=== PATIENT | female | born 1945 | race Caucasian/White ===

== ENCOUNTER 2021-10-01 18:23 | Inpatient (IN) ==
[2021-10-02] MEDS ORDERED: Perflutren Lipid Microsphere 1.3 ML in 0.9 % Sodium Chloride 8.7 ML IVP PRN (03:38)
[2021-10-02 03:40] LABS: Basophils # 0.1 K/mcL (0.0-0.2); Basophils % 0.8 %; Eosinophils # 0.1 K/mcL (0.0-0.6); Eosinophils % 1.1 %; Hematocrit 38.7 % (35.3-44.9); Hemoglobin 12.6 g/dL (11.5-15.4); Immature Granulocytes % 0.3 % (0-4); Lymphocytes # 4.8 K/mcL (0.6-4.6); Lymphocytes % 42.1 %; Mean Corpuscular HGB Conc 32.6 g/dL (31.6-35.5); Mean Corpuscular Hemoglobin 28.3 pg (28.0-33.3); Mean Platelet Volume 8.6 fL (9.4-12.4); Monocytes # 0.8 K/mcL (0.0-1.3); Neutrophils # 5.5 K/mcL (1.6-8.9); Platelet Count 307 K/mcL (140-400); Red Blood Count 4.45 M/mcL (3.82-4.97); Red Cell Distribution Width 15.2 % (11.5-14.5); Segmented Neutrophils % 48.7 %; White Blood Count 11.3 K/mcL (4.3-11.1)
[2021-10-02] MEDS ORDERED: Naloxone 0.4 MG/ML INJ IVP PRN (03:46)
[2021-10-02] MEDS ORDERED: Acetaminophen 325 MG TABLET PO PRN (03:46)
[2021-10-02] MEDS ORDERED: Ondansetron 4 MG/2 ML VIAL IVP PRN (03:46)
[2021-10-02] MEDS ORDERED: D5% in Water 1,000 ML IVC PRN (03:47)
[2021-10-02] MEDS ORDERED: Dextrose Gel 15 GM/37.5 ML TUBE PO PRN ×2 (03:47)
[2021-10-02] MEDS ORDERED: *HR* Dextrose 50 % in Water (Syg) 50 ML SYRINGE IVP PRN (03:47)
[2021-10-02] MEDS: Temazepam 15 MG CAPSULE PO SCH ×2 (03:51→20:12)
[2021-10-02] MEDS ORDERED: Nitroglycerin 0.4 MG TAB.SUBL SL PRN (04:03)
[2021-10-02 04:06] LABS: Alanine Aminotransferase 15 Units/L (7-52); Albumin 4.1 g/dL (3.5-5.7); Albumin/Globulin Ratio 1.2 (1.1-2.2); Alkaline Phosphatase 43 Units/L (34-104); Aspartate Amino Transferase 16 Units/L (13-39); BUN/Creatinine Ratio 12 (6-26); Bilirubin,Total 0.5 mg/dL (0.3-1.0); Blood Urea Nitrogen 15 mg/dL (8-23); Calcium 9.8 mg/dL (8.6-10.3); Carbon Dioxide 26 mEq/L (23-29); Chloride 99 mEq/L (98-107); Chol/HDL Ratio 4.2 (0-4.9); Cholesterol 181 mg/dL (< 200); Globulin 3.3 g/dL (2.4-3.5); Glucose 95 mg/dL (70-105); HDL Cholesterol 43 mg/dL (40-59); LDL Cholesterol,Calculated 102 mg/dL (< 100); Magnesium 1.6 mg/dL (1.6-2.6); Osmolality,Calculated 283 (280-300); Potassium 3.7 mEq/L (3.5-5.1); Sodium 136 mEq/L (136-145); Total Protein 7.4 g/dL (6.4-8.9); Triglycerides 179 mg/dL (< 150); Troponin I < 0.03 ng/mL (< 0.04); eGFR For African Americans 50 (> 60); eGFR For Non-African Americans 41 (> 60)
[2021-10-02 04:18] LABS: Thyroid Stimulating Hormone 2.621 mcIU/mL (0.340-5.600)
[2021-10-02 04:29] LABS: Prothrombin Time 11.3 Seconds (9.4-12.1)
[2021-10-02] MEDS: *HR* Heparin 5,000 UNIT/ML VIAL SQ SCH ×3 (05:10→20:11)
[2021-10-02] MEDS: Insulin LISPRO 300 UNITS/3 ML VIAL SUBQ SCH ×3 (06:13→17:12)
[2021-10-02 06:50] LABS: Estimated Average Glucose 140 mg/dl; Hemoglobin A1C 6.5 %
[2021-10-02] MEDS ORDERED: amLODIPine 5 MG TABLET PO SCH (09:00)
[2021-10-02] MEDS: hydroCHLOROthiazide 25 MG TABLET PO SCH (11:50)
[2021-10-02] MEDS ORDERED: Metoprolol XL (24 HR) Succ 25 MG TAB.ER.24H PO SCH ×2 (12:30→13:42)
[2021-10-02] MEDS: Aspirin 81 MG TAB.CHEW PO SCH (14:01)
[2021-10-02] MEDS ORDERED: Morphine Sulfate 2 MG/ML SYRINGE IVP ONE (14:23)
[2021-10-02] MEDS ORDERED: Morphine Sulfate 2 MG/ML SYRINGE IVP PRN (20:35)
[2021-10-03 01:29] LABS: Hematocrit 36.4 % (35.3-44.9); Hemoglobin 11.8 g/dL (11.5-15.4); Mean Corpuscular HGB Conc 32.4 g/dL (31.6-35.5); Mean Corpuscular Hemoglobin 28.4 pg (28.0-33.3); Mean Corpuscular Volume 87.7 fL (83.0-100.0); Mean Platelet Volume 8.8 fL (9.4-12.4); Platelet Count 302 K/mcL (140-400); Red Blood Count 4.15 M/mcL (3.82-4.97); Red Cell Distribution Width 15.5 % (11.5-14.5); White Blood Count 10.2 K/mcL (4.3-11.1)
[2021-10-03] MEDS: Insulin LISPRO 300 UNITS/3 ML VIAL SUBQ SCH ×3 (01:34→12:25)
[2021-10-03] MEDS: *HR* Heparin 5,000 UNIT/ML VIAL SQ SCH (01:34)
[2021-10-03 01:48] LABS: Calcium 9.4 mg/dL (8.6-10.3); Potassium 3.8 mEq/L (3.5-5.1)
[2021-10-03] MEDS ORDERED: Regadenoson 0.4 MG/5 ML SYRINGE IVP ONE (06:32)
[2021-10-03] MEDS ORDERED: Metoprolol XL (24 HR) Succ 25 MG TAB.ER.24H PO SCH (09:00)
[2021-10-03] MEDS: Aspirin 81 MG TAB.CHEW PO SCH (09:49)
[2021-10-03] MEDS: hydroCHLOROthiazide 25 MG TABLET PO SCH (09:49)
[2021-10-03 10:24] VITALS: BP 98/55; PULSE 78; TEMP 98; O2SAT 94
== END 2021-10-03 14:11 | disposition home or self-care (01) | DRG 313 ==
LOC: 3BNU
PROVIDERS: ADMIT Internal Medicine; ATTEND Internal Medicine

== ENCOUNTER 2021-12-24 03:26 | Inpatient (IN) ==
[2021-12-24] MEDS ORDERED: Morphine Sulfate 2 MG/ML SYRINGE IVP ONE (04:12)
[2021-12-24 04:40] LABS: Basophils # 0.1 K/mcL (0.0-0.2); Basophils % 0.6 %; Eosinophils # 0.1 K/mcL (0.0-0.6); Eosinophils % 0.7 %; Hematocrit 36.6 % (35.3-44.9); Hemoglobin 12.1 g/dL (11.5-15.4); Immature Granulocytes % 0.3 % (0-4); Lymphocytes # 3.6 K/mcL (0.6-4.6); Lymphocytes % 23.7 %; Mean Corpuscular HGB Conc 33.1 g/dL (31.6-35.5); Mean Corpuscular Hemoglobin 29.2 pg (28.0-33.3); Mean Corpuscular Volume 88.4 fL (83.0-100.0); Mean Platelet Volume 8.7 fL (9.4-12.4); Monocytes # 1.1 K/mcL (0.0-1.3); Monocytes % 7.5 %; Neutrophils # 10.2 K/mcL (1.6-8.9); Platelet Count 319 K/mcL (140-400); Red Blood Count 4.14 M/mcL (3.82-4.97); Red Cell Distribution Width 12.8 % (11.5-14.5); Segmented Neutrophils % 67.2 %; White Blood Count 15.1 K/mcL (4.3-11.1)
[2021-12-24 05:36] LABS: Alanine Aminotransferase 10 Units/L (7-52); Albumin/Globulin Ratio 1.1 (1.1-2.2); Alkaline Phosphatase 49 Units/L (34-104); Aspartate Amino Transferase 23 Units/L (13-39); BUN/Creatinine Ratio 13 (6-26); Bilirubin,Total 0.4 mg/dL (0.3-1.0); Blood Urea Nitrogen 19 mg/dL (8-23); Calcium 9.7 mg/dL (8.6-10.3); Carbon Dioxide 26 mEq/L (23-29); Chloride 94 mEq/L (98-107); Globulin 3.7 g/dL (2.4-3.5); Glucose 198 mg/dL (70-105); Magnesium 1.6 mg/dL (1.6-2.6); Osmolality,Calculated 278 (280-300); Potassium 4.2 mEq/L (3.5-5.1); Sodium 130 mEq/L (136-145); Total Protein 7.7 g/dL (6.4-8.9); Troponin I < 0.03 ng/mL (< 0.04); eGFR For African Americans 42 (> 60); eGFR For Non-African Americans 35 (> 60)
[2021-12-24] MEDS ORDERED: Morphine Sulfate 2 MG/ML SYRINGE IVP STA (06:03)
[2021-12-24] MEDS ORDERED: Ondansetron 4 MG/2 ML VIAL IVP ONE (06:35)
[2021-12-24 08:13] LABS: INR 1.1; Prothrombin Time 12.6 Seconds (9.4-12.1)
[2021-12-24 08:15] LABS: Activated Partial Thrombo Time 34.3 Seconds (26.0-36.0)
[2021-12-24] MEDS ORDERED: Naloxone 0.4 MG/ML INJ IVP PRN (08:35)
[2021-12-24] MEDS ORDERED: Ondansetron 4 MG/2 ML VIAL IVP PRN (08:42)
[2021-12-24] MEDS ORDERED: Acetaminophen 325 MG TABLET PO PRN (08:42)
[2021-12-24] MEDS ORDERED: Dextrose 4 GM Chewable Tablets PO PRN ×2 (08:46)
[2021-12-24] MEDS ORDERED: D5% in Water 1,000 ML IVC PRN (08:46)
[2021-12-24] MEDS ORDERED: *HR* Dextrose 50 % in Water (Syg) 50 ML SYRINGE IVP PRN (08:46)
[2021-12-24] MEDS ORDERED: Temazepam 15 MG CAPSULE PO PRN (08:47)
[2021-12-24] MEDS ORDERED: *HR* HYDROmorphone 4 MG TABLET PO PRN (09:12)
[2021-12-24] MEDS: Insulin LISPRO 300 UNITS/3 ML VIAL SUBQ SCH ×2 (12:00→19:05)
[2021-12-24] MEDS: Isosorbide MONOnitrate (24 HR) 30 MG TAB.ER.24H PO SCH (12:00)
[2021-12-24] MEDS: Aspirin Enteric Coated 81 MG Tablet PO SCH (12:00)
[2021-12-24] MEDS: amLODIPine 5 MG TABLET PO SCH (12:00)
[2021-12-24] MEDS ORDERED: 0.9 % Sodium Chloride 1,000 ML IVC SCH (12:15)
[2021-12-24 16:58] LABS: Calcium 9.1 mg/dL (8.6-10.3); Potassium 3.8 mEq/L (3.5-5.1)
[2021-12-24 20:17] LABS: Calcium 8.8 mg/dL (8.6-10.3); Potassium 3.9 mEq/L (3.5-5.1)
[2021-12-24] MEDS ORDERED: Insulin LISPRO 300 UNITS/3 ML VIAL SUBQ SCH (21:00)
[2021-12-25 06:28] LABS: Basophils # 0.1 K/mcL (0.0-0.2); Basophils % 0.6 %; Eosinophils # 0.1 K/mcL (0.0-0.6); Eosinophils % 1.4 %; Hematocrit 34.8 % (35.3-44.9); Hemoglobin 11.6 g/dL (11.5-15.4); Immature Granulocytes % 0.2 % (0-4); Lymphocytes # 3.3 K/mcL (0.6-4.6); Lymphocytes % 35.4 %; Mean Corpuscular HGB Conc 33.3 g/dL (31.6-35.5); Mean Corpuscular Hemoglobin 29.7 pg (28.0-33.3); Mean Platelet Volume 8.4 fL (9.4-12.4); Monocytes # 0.9 K/mcL (0.0-1.3); Monocytes % 9.3 %; Platelet Count 273 K/mcL (140-400); Red Blood Count 3.91 M/mcL (3.82-4.97); Red Cell Distribution Width 12.6 % (11.5-14.5); Segmented Neutrophils % 53.1 %; White Blood Count 9.4 K/mcL (4.3-11.1)
[2021-12-25 06:44] LABS: Calcium 9.3 mg/dL (8.6-10.3); Magnesium 1.6 mg/dL (1.6-2.6)
[2021-12-25] MEDS ORDERED: *HR* FentaNYL (PF) 100 MCG/2 ML VIAL ONE (07:23)
[2021-12-25] MEDS ORDERED: *HR* Midazolam HCl 2 MG/2 ML VIAL ONE (07:23)
[2021-12-25] MEDS ORDERED: *HR* Propofol 200 MG/20 ML VIAL IVP ONE (07:24)
[2021-12-25] MEDS ORDERED: Lidocaine -MPF 2% 2 ML VIAL ONE ×2 (07:24→07:35)
[2021-12-25] MEDS ORDERED: *HR* Succinylcholine 200 MG/10 ML VIAL IVP ONE (07:24)
[2021-12-25] MEDS ORDERED: Ondansetron 4 MG/2 ML VIAL ONE (07:24)
[2021-12-25] MEDS ORDERED: ROPIVACAINE/PF/NS 0.25% 1 EACH SYRINGE INTRAART ONE (07:34)
[2021-12-25] MEDS ORDERED: Ropivacaine/PF 0.5% 30 ML VIAL ONE (07:34)
[2021-12-25] MEDS ORDERED: Clindamycin 900 MG/50 ML 900 MG/50 ML IV.SOLN IVPB ONE (07:40)
[2021-12-25] MEDS ORDERED: Ringers Solution, Lactated 1,000 ML IVC SCH (07:45)
[2021-12-25 07:51] LABS: Estimated Average Glucose 148 mg/dl; Hemoglobin A1C 6.8 %
[2021-12-25] MEDS ORDERED: Promethazine 6.25 MG in Water for inj. (sterile) 20 ML IVPB PRN (07:56)
[2021-12-25] MEDS ORDERED: ceFAZolin 2,000 MG in 0.9 % Sodium Chloride 100 ML IVPB SCH (08:00)
[2021-12-25] MEDS ORDERED: Bupivacaine/EPI 1:200k 0.25% 50 ML VIAL ONE (08:10)
[2021-12-25] MEDS ORDERED: Acetaminophen IV 1,000 MG/100 ML BAG IVPB ONE (08:48)
[2021-12-25] MEDS ORDERED: EPHEDrine 50 MG/ML VIAL ONE (08:55)
[2021-12-25] MEDS ORDERED: *HR* HYDROmorphone 4 MG TABLET PO PRN (11:48)
[2021-12-25] MEDS ORDERED: D5% in Water 1,000 ML IVC PRN (11:48)
[2021-12-25] MEDS ORDERED: Dextrose 4 GM Chewable Tablets PO PRN ×2 (11:48)
[2021-12-25] MEDS ORDERED: Naloxone 0.4 MG/ML INJ IVP PRN (11:48)
[2021-12-25] MEDS ORDERED: *HR* Dextrose 50 % in Water (Syg) 50 ML SYRINGE IVP PRN (11:48)
[2021-12-25] MEDS ORDERED: Ondansetron 4 MG/2 ML VIAL IVP PRN (11:48)
[2021-12-25] MEDS ORDERED: Clindamycin 600 MG/50 ML 600 MG/50 ML IV.SOLN IVPB SCH ×2 (16:00)
[2021-12-25] MEDS: Insulin LISPRO 300 UNITS/3 ML VIAL SUBQ SCH ×2 (16:31→23:15)
[2021-12-25] MEDS: Temazepam 15 MG CAPSULE PO PRN (23:15)
[2021-12-26 04:49] LABS: Basophils % 0.1 %; Hematocrit 31.2 % (35.3-44.9); Hemoglobin 10.5 g/dL (11.5-15.4); Immature Granulocytes % 0.4 % (0-4); Lymphocytes # 2.4 K/mcL (0.6-4.6); Lymphocytes % 16.2 %; Mean Corpuscular HGB Conc 33.7 g/dL (31.6-35.5); Mean Corpuscular Hemoglobin 29.8 pg (28.0-33.3); Mean Corpuscular Volume 88.6 fL (83.0-100.0); Mean Platelet Volume 8.8 fL (9.4-12.4); Monocytes # 0.8 K/mcL (0.0-1.3); Monocytes % 5.4 %; Neutrophils # 11.3 K/mcL (1.6-8.9); Platelet Count 257 K/mcL (140-400); Red Blood Count 3.52 M/mcL (3.82-4.97); Red Cell Distribution Width 12.5 % (11.5-14.5); Segmented Neutrophils % 77.9 %
[2021-12-26 04:50] LABS: White Blood Count 14.5 K/mcL (4.3-11.1)
[2021-12-26 05:10] LABS: Albumin 3.6 g/dL (3.5-5.7); Albumin/Globulin Ratio 1.1 (1.1-2.2); Bilirubin,Total 0.3 mg/dL (0.3-1.0); Calcium 9.1 mg/dL (8.6-10.3); Globulin 3.2 g/dL (2.4-3.5); Potassium 4.2 mEq/L (3.5-5.1); Total Protein 6.8 g/dL (6.4-8.9)
[2021-12-26] MEDS: amLODIPine 5 MG TABLET PO SCH (08:14)
[2021-12-26] MEDS: Insulin LISPRO 300 UNITS/3 ML VIAL SUBQ SCH ×4 (08:14→19:42)
[2021-12-26] MEDS: Isosorbide MONOnitrate (24 HR) 30 MG TAB.ER.24H PO SCH (08:14)
[2021-12-26] MEDS ORDERED: Aspirin Enteric Coated 81 MG Tablet PO SCH (09:00)
[2021-12-26] MEDS: Aspirin Enteric Coated 81 MG Tablet PO SCH (19:39)
[2021-12-26] MEDS: Temazepam 15 MG CAPSULE PO PRN (23:19)
[2021-12-27] MEDS: Ringers Solution, Lactated 1,000 ML IVC SCH ×2 (07:19→13:51)
[2021-12-27] MEDS: Insulin LISPRO 300 UNITS/3 ML VIAL SUBQ SCH ×5 (07:27→19:56)
[2021-12-27] MEDS: Isosorbide MONOnitrate (24 HR) 30 MG TAB.ER.24H PO SCH ×2 (07:51→08:20)
[2021-12-27] MEDS: amLODIPine 5 MG TABLET PO SCH ×2 (07:51→08:20)
[2021-12-27] MEDS: Aspirin Enteric Coated 81 MG Tablet PO SCH ×2 (07:52→20:14)
[2021-12-27 08:37] LABS: Basophils # 0.1 K/mcL (0.0-0.2); Basophils % 0.6 %; Eosinophils # 0.1 K/mcL (0.0-0.6); Hemoglobin 11.6 g/dL (11.5-15.4); Immature Granulocytes % 0.2 % (0-4); Lymphocytes % 39.8 %; Mean Corpuscular HGB Conc 32.2 g/dL (31.6-35.5); Mean Corpuscular Hemoglobin 28.8 pg (28.0-33.3); Mean Corpuscular Volume 89.3 fL (83.0-100.0); Mean Platelet Volume 8.5 fL (9.4-12.4); Monocytes % 8.1 %; Neutrophils # 6.3 K/mcL (1.6-8.9); Platelet Count 316 K/mcL (140-400); Red Blood Count 4.03 M/mcL (3.82-4.97); Segmented Neutrophils % 50.3 %; White Blood Count 12.5 K/mcL (4.3-11.1)
[2021-12-27 08:57] LABS: Albumin 3.8 g/dL (3.5-5.7); Albumin/Globulin Ratio 1.1 (1.1-2.2); Bilirubin,Total 0.5 mg/dL (0.3-1.0); Calcium 9.4 mg/dL (8.6-10.3); Globulin 3.4 g/dL (2.4-3.5); Potassium 4.2 mEq/L (3.5-5.1); Total Protein 7.2 g/dL (6.4-8.9)
[2021-12-27] MEDS: Acetaminophen 325 MG TABLET PO PRN (11:05)
[2021-12-27] MEDS ORDERED: Ringers Solution, Lactated 500 ML IVC ONE (13:31)
[2021-12-27 15:42] LABS: Bilirubin,Urine Negative (Negative); Blood,Urine Negative (Negative); Clarity,Urine Clear (Clear); Color,Urine Light-Yellow (Yellow); Glucose,Urine (UA) Normal (Normal); Hyaline Casts,Urine Few per lpf (None Seen); Ketones,Urine Negative (Negative); Leukocyte Esterase,Urine Small (Negative); Mucus,Urine Few per lpf (None-Few); Nitrite,Urine Negative (Negative); PH,Urine 6.5 pH Units (5.0-8.0); Protein,Urine Negative (Neg-Trace); RBC,Urine 0-3 per hpf (0-3); Specific Gravity,Urine 1.015 (1.010-1.025); Squamous Epithelial Cell,Urine Few per hpf (None-Few); Transitional Epi Cells,Urine Few per hpf (None-Few); Urobilinogen,Urine Normal (Normal)
[2021-12-27 16:42] LABS: Influenza A PCR Negative (Negative); Influenza B PCR Negative (Negative); Resp. Syncytial Virus PCR Negative (Negative)
[2021-12-27] MEDS: Nitrofurantoin (BID) 100 MG CAPSULE PO SCH (17:05)
[2021-12-27 17:13] LABS: SARS-CoV-2 by PCR (In House) Negative (Negative)
[2021-12-27 17:27] LABS: Calcium 8.9 mg/dL (8.6-10.3); Potassium 4.3 mEq/L (3.5-5.1)
[2021-12-28 01:06] LABS: Basophils # 0.1 K/mcL (0.0-0.2); Basophils % 0.9 %; Eosinophils # 0.2 K/mcL (0.0-0.6); Eosinophils % 1.8 %; Hematocrit 34.2 % (35.3-44.9); Hemoglobin 11.1 g/dL (11.5-15.4); Immature Granulocytes % 0.3 % (0-4); Lymphocytes # 3.9 K/mcL (0.6-4.6); Lymphocytes % 35.8 %; Mean Corpuscular HGB Conc 32.5 g/dL (31.6-35.5); Mean Corpuscular Hemoglobin 29.8 pg (28.0-33.3); Mean Corpuscular Volume 91.7 fL (83.0-100.0); Mean Platelet Volume 8.3 fL (9.4-12.4); Monocytes # 0.9 K/mcL (0.0-1.3); Monocytes % 8.4 %; Neutrophils # 5.8 K/mcL (1.6-8.9); Platelet Count 283 K/mcL (140-400); Red Blood Count 3.73 M/mcL (3.82-4.97); Red Cell Distribution Width 12.9 % (11.5-14.5); Segmented Neutrophils % 52.8 %
[2021-12-28 01:26] LABS: Calcium 9.4 mg/dL (8.6-10.3); Potassium 4.3 mEq/L (3.5-5.1)
[2021-12-28] MEDS: amLODIPine 5 MG TABLET PO SCH (07:50)
[2021-12-28] MEDS: Nitrofurantoin (BID) 100 MG CAPSULE PO SCH (07:50)
[2021-12-28] MEDS: Insulin LISPRO 300 UNITS/3 ML VIAL SUBQ SCH ×4 (07:50→20:41)
[2021-12-28] MEDS: Isosorbide MONOnitrate (24 HR) 30 MG TAB.ER.24H PO SCH (07:50)
[2021-12-28] MEDS ORDERED: Ringers Solution, Lactated 1,000 ML IVC SCH (08:12)
[2021-12-28] MEDS: *HR* HYDROmorphone 2 MG TABLET PO PRN (11:07)
[2021-12-28] MEDS ORDERED: *HR* HYDROmorphone 2 MG TABLET PO ONE (18:37)
[2021-12-28] MEDS: Aspirin Enteric Coated 81 MG Tablet PO SCH (20:43)
[2021-12-28] MEDS: Temazepam 15 MG CAPSULE PO PRN (20:46)
[2021-12-28] MEDS ORDERED: Sulfamethoxazole/Trimeth DS 1 EACH TABLET PO ONE (21:00)
[2021-12-29 05:36] LABS: Calcium 8.9 mg/dL (8.6-10.3); Potassium 4.1 mEq/L (3.5-5.1)
[2021-12-29] MEDS: *HR* HYDROmorphone 2 MG TABLET PO PRN ×3 (05:43→18:41)
[2021-12-29] MEDS: Insulin LISPRO 300 UNITS/3 ML VIAL SUBQ SCH ×4 (07:38→21:31)
[2021-12-29 08:09] LABS: Basophils # 0.1 K/mcL (0.0-0.2); Basophils % 0.7 %; Eosinophils # 0.2 K/mcL (0.0-0.6); Eosinophils % 1.6 %; Hematocrit 33.3 % (35.3-44.9); Immature Granulocytes % 0.3 % (0-4); Lymphocytes % 28.3 %; Mean Corpuscular Hemoglobin 29.3 pg (28.0-33.3); Mean Corpuscular Volume 88.8 fL (83.0-100.0); Mean Platelet Volume 8.3 fL (9.4-12.4); Monocytes % 9.4 %; Neutrophils # 6.4 K/mcL (1.6-8.9); Platelet Count 288 K/mcL (140-400); Red Blood Count 3.75 M/mcL (3.82-4.97); Red Cell Distribution Width 12.7 % (11.5-14.5); Segmented Neutrophils % 59.7 %; White Blood Count 10.7 K/mcL (4.3-11.1)
[2021-12-29] MEDS: amLODIPine 5 MG TABLET PO SCH (08:32)
[2021-12-29] MEDS: Isosorbide MONOnitrate (24 HR) 30 MG TAB.ER.24H PO SCH (08:32)
[2021-12-29] MEDS ORDERED: Sulfamethoxazole/Trimeth SS 1 TAB PO SCH (09:00)
[2021-12-29] MEDS: Sennosides 8.6 MG TABLET PO SCH (13:28)
[2021-12-29] MEDS: Aspirin Enteric Coated 81 MG Tablet PO SCH (21:28)
[2021-12-29] MEDS: Sulfamethoxazole/Trimeth DS 1 EACH TABLET PO SCH (21:36)
[2021-12-30 03:02] LABS: Basophils # 0.1 K/mcL (0.0-0.2); Basophils % 0.6 %; Eosinophils # 0.2 K/mcL (0.0-0.6); Eosinophils % 1.8 %; Hematocrit 33.3 % (35.3-44.9); Hemoglobin 10.9 g/dL (11.5-15.4); Immature Granulocytes % 0.4 % (0-4); Lymphocytes # 3.9 K/mcL (0.6-4.6); Lymphocytes % 32.7 %; Mean Corpuscular HGB Conc 32.7 g/dL (31.6-35.5); Mean Corpuscular Hemoglobin 29.5 pg (28.0-33.3); Mean Platelet Volume 8.3 fL (9.4-12.4); Monocytes % 8.7 %; Neutrophils # 6.6 K/mcL (1.6-8.9); Platelet Count 342 K/mcL (140-400); Red Cell Distribution Width 12.7 % (11.5-14.5); Segmented Neutrophils % 55.8 %; White Blood Count 11.8 K/mcL (4.3-11.1)
[2021-12-30 03:17] LABS: Calcium 9.3 mg/dL (8.6-10.3)
[2021-12-30] MEDS: *HR* HYDROmorphone 2 MG TABLET PO PRN ×3 (03:36→19:29)
[2021-12-30] MEDS: amLODIPine 5 MG TABLET PO SCH (08:45)
[2021-12-30] MEDS: Isosorbide MONOnitrate (24 HR) 30 MG TAB.ER.24H PO SCH (08:45)
[2021-12-30] MEDS: Sennosides 8.6 MG TABLET PO SCH (08:45)
[2021-12-30] MEDS: Insulin LISPRO 300 UNITS/3 ML VIAL SUBQ SCH ×4 (09:21→20:37)
[2021-12-30] MEDS: Sulfamethoxazole/Trimeth DS 1 EACH TABLET PO SCH ×2 (09:22→19:30)
[2021-12-30] MEDS: Acetaminophen 325 MG TABLET PO PRN (17:20)
[2021-12-30] MEDS: Aspirin Enteric Coated 81 MG Tablet PO SCH (19:29)
[2021-12-31] MEDS: *HR* HYDROmorphone 2 MG TABLET PO PRN ×5 (03:12→22:48)
[2021-12-31 05:11] LABS: Basophils # 0.1 K/mcL (0.0-0.2); Basophils % 0.6 %; Eosinophils # 0.2 K/mcL (0.0-0.6); Eosinophils % 1.8 %; Hematocrit 33.8 % (35.3-44.9); Hemoglobin 11.1 g/dL (11.5-15.4); Immature Granulocytes % 0.4 % (0-4); Lymphocytes # 3.5 K/mcL (0.6-4.6); Lymphocytes % 30.3 %; Mean Corpuscular HGB Conc 32.8 g/dL (31.6-35.5); Mean Corpuscular Hemoglobin 29.7 pg (28.0-33.3); Mean Corpuscular Volume 90.4 fL (83.0-100.0); Mean Platelet Volume 8.3 fL (9.4-12.4); Monocytes # 0.9 K/mcL (0.0-1.3); Monocytes % 8.2 %; Neutrophils # 6.7 K/mcL (1.6-8.9); Platelet Count 333 K/mcL (140-400); Red Blood Count 3.74 M/mcL (3.82-4.97); Red Cell Distribution Width 12.9 % (11.5-14.5); Segmented Neutrophils % 58.7 %; White Blood Count 11.4 K/mcL (4.3-11.1)
[2021-12-31 05:25] LABS: Calcium 9.1 mg/dL (8.6-10.3)
[2021-12-31] MEDS: Insulin LISPRO 300 UNITS/3 ML VIAL SUBQ SCH ×4 (07:20→19:48)
[2021-12-31] MEDS: Sulfamethoxazole/Trimeth DS 1 EACH TABLET PO SCH (08:25)
[2021-12-31] MEDS: amLODIPine 5 MG TABLET PO SCH (08:25)
[2021-12-31] MEDS: Isosorbide MONOnitrate (24 HR) 30 MG TAB.ER.24H PO SCH (08:25)
[2021-12-31] MEDS: 0.9 % Sodium Chloride 1,000 ML IVC SCH ×2 (10:29→22:49)
[2021-12-31] MEDS: Aspirin Enteric Coated 81 MG Tablet PO SCH (19:14)
[2021-12-31] MEDS: Sulfamethoxazole/Trimeth SS 1 TAB PO SCH (19:49)
[2022-01-01] MEDS: *HR* HYDROmorphone 2 MG TABLET PO PRN ×4 (03:09→19:17)
[2022-01-01 03:52] LABS: Basophils # 0.1 K/mcL (0.0-0.2); Basophils % 0.7 %; Eosinophils # 0.2 K/mcL (0.0-0.6); Eosinophils % 2.5 %; Hematocrit 32.2 % (35.3-44.9); Hemoglobin 10.5 g/dL (11.5-15.4); Immature Granulocytes % 0.5 % (0-4); Lymphocytes # 3.2 K/mcL (0.6-4.6); Lymphocytes % 32.8 %; Mean Corpuscular HGB Conc 32.6 g/dL (31.6-35.5); Mean Corpuscular Hemoglobin 29.7 pg (28.0-33.3); Mean Corpuscular Volume 91.2 fL (83.0-100.0); Mean Platelet Volume 8.4 fL (9.4-12.4); Monocytes # 0.8 K/mcL (0.0-1.3); Monocytes % 8.3 %; Neutrophils # 5.3 K/mcL (1.6-8.9); Platelet Count 321 K/mcL (140-400); Red Blood Count 3.53 M/mcL (3.82-4.97); Segmented Neutrophils % 55.2 %; White Blood Count 9.6 K/mcL (4.3-11.1)
[2022-01-01 04:17] LABS: Calcium 8.7 mg/dL (8.6-10.3); Potassium 4.1 mEq/L (3.5-5.1)
[2022-01-01] MEDS: Insulin LISPRO 300 UNITS/3 ML VIAL SUBQ SCH ×4 (08:01→20:15)
[2022-01-01] MEDS: Isosorbide MONOnitrate (24 HR) 30 MG TAB.ER.24H PO SCH (08:19)
[2022-01-01] MEDS: Sulfamethoxazole/Trimeth SS 1 TAB PO SCH ×2 (08:19→19:17)
[2022-01-01] MEDS: amLODIPine 5 MG TABLET PO SCH (08:19)
[2022-01-01] MEDS: Aspirin Enteric Coated 81 MG Tablet PO SCH (19:17)
[2022-01-02] MEDS: *HR* HYDROmorphone 2 MG TABLET PO PRN ×4 (02:30→22:33)
[2022-01-02] MEDS: Insulin LISPRO 300 UNITS/3 ML VIAL SUBQ SCH ×4 (07:52→20:05)
[2022-01-02] MEDS: Isosorbide MONOnitrate (24 HR) 30 MG TAB.ER.24H PO SCH (07:53)
[2022-01-02] MEDS: amLODIPine 5 MG TABLET PO SCH (07:53)
[2022-01-02] MEDS: *HR* Rivaroxaban 10 MG TABLET PO SCH (16:27)
[2022-01-02] MEDS: Aspirin Enteric Coated 81 MG Tablet PO SCH (20:22)
[2022-01-03] MEDS: Insulin LISPRO 300 UNITS/3 ML VIAL SUBQ SCH ×3 (07:27→16:51)
[2022-01-03] MEDS: Isosorbide MONOnitrate (24 HR) 30 MG TAB.ER.24H PO SCH (08:42)
[2022-01-03] MEDS: amLODIPine 5 MG TABLET PO SCH (08:42)
[2022-01-03] MEDS ORDERED: Isovue-370 500 ML BOTTLE IVP ONE (09:41)
[2022-01-03] MEDS ORDERED: cefTRIAXone 2,000 MG in 0.9 % Sodium Chloride Mini Bag 100 ML IVPB SCH (10:00)
[2022-01-03 15:42] VITALS: O2SAT 93
[2022-01-03] MEDS: *HR* Rivaroxaban 10 MG TABLET PO SCH (15:48)
[2022-01-03] MEDS ORDERED: MetroNIDAZOLE 500 MG/100 ML 500 MG/100 ML BAG IVPB SCH (16:00)
[2022-01-03 17:28] LABS: Influenza A PCR Negative (Negative); Influenza B PCR Negative (Negative); Resp. Syncytial Virus PCR Negative (Negative)
[2022-01-03 17:37] LABS: SARS-CoV-2 by PCR (In House) Negative (Negative)
[2022-01-03 19:15] VITALS: BP 104/70; PULSE 100; TEMP 98.5
== END 2022-01-03 20:00 | DRG 493 ==
LOC: EMEROOARM 03:26 → 4WAOSI 03:26 → SUATTDRO 12:25
PROVIDERS: ADMIT Pharmacist; ATTEND Internal Medicine

== ENCOUNTER 2022-04-06 06:28 | Inpatient (IN) ==
[2022-04-06] MEDS ORDERED: *HR* FentaNYL (PF) 100 MCG/2 ML VIAL ONE (06:49)
[2022-04-06] MEDS ORDERED: *HR* Propofol 200 MG/20 ML VIAL IVP ONE ×2 (06:49→10:41)
[2022-04-06] MEDS ORDERED: *HR* Midazolam HCl 2 MG/2 ML VIAL ONE (06:49)
[2022-04-06] MEDS ORDERED: Ondansetron 4 MG/2 ML VIAL ONE (06:53)
[2022-04-06] MEDS ORDERED: *HR* Rocuronium Bromide 50 MG/5 ML VIAL ONE ×2 (06:53→08:44)
[2022-04-06] MEDS ORDERED: Lidocaine -MPF 2% 5 ML VIAL ONE (06:53)
[2022-04-06] MEDS ORDERED: Albumin Human 5% 0 GM/0 ML IV.SOLN ONE (07:05)
[2022-04-06] MEDS ORDERED: Dexmedetomidine HCl 400 MCG/100 ML MLS IVC ONE (07:05)
[2022-04-06] MEDS ORDERED: *HR* Vasopressin 20 UNIT/ML VIAL ONE (07:06)
[2022-04-06] MEDS ORDERED: NiCARdipine 2.5 MG/10 ML Syringe IVPB ONE (07:06)
[2022-04-06] MEDS ORDERED: *HR* FentaNYL (PF) 100 MCG/2 ML VIAL IVP PRN (07:09)
[2022-04-06] MEDS ORDERED: Ondansetron 4 MG/2 ML VIAL IVP PRN ×2 (07:09→17:49)
[2022-04-06] MEDS ORDERED: Acetaminophen IV 1,000 MG/100 ML BAG IVPB ONE (07:09)
[2022-04-06] MEDS ORDERED: Heparin 1,000 UNITS/500 mL 500 ML ONE ×2 (07:10→07:15)
[2022-04-06] MEDS ORDERED: Protamine Sulfate 50 MG/5 ML VIAL IVP ONE (07:14)
[2022-04-06] MEDS ORDERED: CeFAZolin Syr 2,000MG/20 ML 2,000 MG/20 ML SYRINGE IVPB ONE (07:37)
[2022-04-06] MEDS ORDERED: Ringers Solution, Lactated 1,000 ML IVC SCH (07:45)
[2022-04-06] MEDS ORDERED: ceFAZolin 1,000 MG, Sodium Chloride IRRigation 1,000 ML IR ONE (07:45)
[2022-04-06] MEDS ORDERED: EPHEDrine 50 MG/ML VIAL ONE ×2 (08:12→10:20)
[2022-04-06] MEDS ORDERED: *HR* Heparin 5,000 UNIT/ML VIAL ONE (08:37)
[2022-04-06] MEDS ORDERED: *HR* HYDROMORPHONE 2 MG/ML VIAL ONE (08:42)
[2022-04-06] MEDS ORDERED: Sugammadex Sodium 200 MG/2 ML VIAL IV ONE (09:58)
[2022-04-06] MEDS ORDERED: Heparin 1,000 UNITS/500 mL 0 ML ONE (10:08)
[2022-04-06] MEDS ORDERED: Temazepam 15 MG CAPSULE PO PRN (17:49)
[2022-04-06] MEDS ORDERED: *HR* Labetalol 20 MG/4 ML SYRINGE IVP PRN (17:49)
[2022-04-06] MEDS ORDERED: Nitroglycerin 0.4 MG TAB.SUBL SL PRN (17:49)
[2022-04-06] MEDS ORDERED: *HR* HYDROcodone/Acet 5/325 mg TABLET PO PRN (17:49)
[2022-04-06] MEDS ORDERED: Acetaminophen 325 MG TABLET PO PRN (17:49)
[2022-04-06] MEDS ORDERED: Naloxone 0.4 MG/ML INJ IVP PRN (17:49)
[2022-04-06] MEDS ORDERED: *HR* OxyCODONE Immed Rel 5 MG TABLET PO PRN (17:49)
[2022-04-06] MEDS: CeFAZolin 2 GM/120 ML BAG IVPB SCH (19:02)
[2022-04-07] MEDS: CeFAZolin 2 GM/120 ML BAG IVPB SCH ×2 (01:09→09:17)
[2022-04-07 05:32] LABS: Basophils % 0.1 %; Hematocrit 29.2 % (35.3-44.9); Hemoglobin 9.4 g/dL (11.5-15.4); Immature Granulocytes % 0.2 % (0-4); Lymphocytes # 2.8 K/mcL (0.6-4.6); Lymphocytes % 22.4 %; Mean Corpuscular HGB Conc 32.2 g/dL (31.6-35.5); Mean Corpuscular Volume 83.9 fL (83.0-100.0); Mean Platelet Volume 8.6 fL (9.4-12.4); Monocytes # 0.7 K/mcL (0.0-1.3); Monocytes % 5.9 %; Platelet Count 249 K/mcL (140-400); Red Blood Count 3.48 M/mcL (3.82-4.97); Red Cell Distribution Width 15.1 % (11.5-14.5); Segmented Neutrophils % 71.4 %; White Blood Count 12.6 K/mcL (4.3-11.1)
[2022-04-07 05:51] LABS: Calcium 8.7 mg/dL (8.6-10.3); Potassium 4.2 mEq/L (3.5-5.1)
[2022-04-07 07:11] VITALS: TEMP 98.5
[2022-04-07] MEDS ORDERED: Isosorbide MONOnitrate (24 HR) 30 MG TAB.ER.24H PO SCH (09:00)
[2022-04-07] MEDS ORDERED: *HR* Glimepiride 2 MG TABLET PO SCH (09:00)
[2022-04-07] MEDS ORDERED: amLODIPine 5 MG TABLET PO SCH (09:00)
[2022-04-07] MEDS ORDERED: Aspirin Enteric Coated 81 MG Tablet PO SCH (09:00)
[2022-04-07] MEDS ORDERED: Patient Taking Own Medication 1 EACH PO SCH (09:00)
[2022-04-07 13:04] VITALS: BP 119/59; PULSE 65; O2SAT 98
== END 2022-04-07 12:30 | disposition home or self-care (01) | DRG 39 ==
LOC: SAMDAY 06:28 → 2NNU 17:48
PROVIDERS: ADMIT Surgery Vascular Surgery; ATTEND Surgery Vascular Surgery